=== PATIENT | male | born 1960 | race Caucasian/White ===

== ENCOUNTER 2020-02-27 12:22 | Emergency (ER) | payer OTHER, SELFPAY ==
--- NOTE | 2020-02-27 12:26 | ED.GENADULT ---
HPI - General Adult General Chief complaint: Eye Problems Stated complaint: eye irritation Time Seen by Provider: 02/27/20 12:26 Source: patient Mode of arrival: ambulatory Limitations: no limitations History of Present Illness HPI narrative: 59-year-old male patient presents to the [facility] with complaints of right eye irritation and pain since yesterday. Patient states that he was riding his bike yesterday and thinks something flew into his eye. Patient states he has had some irritation a little bit of pain. Patient states he has had clear watery discharge. Patient still feels like there is something in his eye. Denies taking anything for pain. Patient states he has had a little bit of slight blurry vision due to the clear watery eyes but denies any sensitivity to the light. Denies any itchiness that he is aware of. Related Data Home Medications Medication Instructions Recorded Confirmed atorvastatin 10 mg tablet 10 mg PO DAILY 11/18/19 11/18/19 Allergies Allergy/AdvReac Type Severity Reaction Status Date / Time No Known Allergies Allergy Unverified 11/18/19 14:07 Review of Systems Review of Systems: Narrative: CONSTITUTIONAL: Denies fever, chills, or sweats. EYES: Denies visual changes, positive right eye redness and clear discharge. ENT: Denies rhinorrhea, congestion, sore throat, or otalgia. CARDIOVASCULAR: Denies chest pain, palpitations, or edema. RESPIRATORY: Denies cough or dyspnea. GASTROINTESTINAL: Denies abdominal pain, nausea, vomiting, or diarrhea. GENITOURINARY: Denies dysuria or hematuria. SKIN: Denies rash or itching. MUSCULOSKELETAL: Denies back pain, joint pain, or myalgia. NEUROLOGIC: Denies headache, numbness, or weakness. PSYCHIATRIC: Denies anxiety or depression. [facility] Past Medical History Medical History Chronic low back pain Essential (primary) hypertension Mixed hyperlipidemia Family History Family History Mother COPD (chronic obstructive pulmonary disease) Father Cancer of neck Social History Social History Smoking status: Never smoker Alcohol intake: current Substance use: never Gender identity (if verbalized by the patient): Male Comments At the time of my signature I agree with nursing past medical history, surgical, social, and family history. There is no relevant family history pertinent to the presenting complaint. Exam Narrative: Exam Narrative: GENERAL: Well-appearing, well-nourished, and in no acute distress. HEAD: Normocephalic, atraumatic. EYES: PERRLA and EOM intact without limitation or complaint of pain, no periorbital soft tissue swelling ,no erythema, warmth or tenderness noted, no obvious deformity. No crusting or swelling.clear tearing and draining.No photophobia. No nystagmus No FB or lesion on lid eversion. Corneas grossly clear, no obvious FB or hyphens/hypopyon. injection to sclera. Lids and lashes clear. ENT: Nares clear, no rhinorrhea or epistaxis. Mucous membranes moist. NECK: Supple. No lymphadenopathy CHEST: Clear to auscultation. No respiratory distress. HEART: Regular rate and rhythm. No murmur heard. Normal peripheral pulses. ABDOMEN: Soft, nontender, nondistended, normal active bowel sounds. EXTREMITIES: Normal range of motion. No edema. SKIN: Warm, dry, no rash. NEURO: No focal deficits. Alert and oriented x3. Course Vital Signs Vital signs: Vital Signs Temperature 36.3 C L 02/27/20 12:31 Pulse Rate 60 02/27/20 12:31 Respiratory Rate 18 02/27/20 12:31 Blood Pressure 174/108 H 02/27/20 12:31 Pulse Oximetry 99 02/27/20 12:31 Temperature 36.3 C L 02/27/20 12:31 Pulse Rate 60 02/27/20 12:31 Respiratory Rate 18 02/27/20 12:31 Blood Pressure 178/110 H 02/27/20 12:46 Pulse Oximetry 99 02/27/20 12:31 Vital signs re
[2020-02-27 12:31] VITALS: BP 174/108; PULSE 60; RESP 18; TEMP 36.3; O2SAT 99
[2020-02-27 12:46] VITALS: BP 178/110
== END 2020-02-27 13:10 | disposition home or self-care (01) ==
PROVIDERS: Emergency Provider Nurse Practitioner Family
DX: S05.01XA Injury of conjunctiva and corneal abrasion without foreign body, right eye, initial encounter (principal); X58.XXXA Exposure to other specified factors, initial encounter; I10 Essential (primary) hypertension; E78.2 Mixed hyperlipidemia
CPT/HCPCS: 99213; A9270; G0463

== ENCOUNTER 2021-01-22 09:18 | Outpatient (CLI) | payer OTHER, SELFPAY ==
--- NOTE | 2021-02-11 17:01 | WPDHOMESLEEP ---
Sleep Study - Home Unattended Date of Study: 01/22/21 Ordering Provider: Jacob Javier MD Interpreting Provider: Gris Miller MD Home Sleep Study Type: Watch PAT Height: 1.83 m Weight: 108.862 kg Body Mass Index: 32.5 Neck Circumference (inches): 19 [place]: 6 Reason for Sleep Study Loud snoring per his Sleep History Ternt Strickland is a 69 year old man with loud snoring reported to him by his , and this is upsetting to her. He does not have trouble sleeping with a cold and does not wake up gasping for breath at night. He does not have breathing problems at night according to himself but apparently his notices abnormal breathing. He rarely sweats excessively at night. He does not notice his heart pounding or beating irregularly night. He does not fall asleep during the day, does not fall asleep involuntarily or while driving. He does not have loss of muscle tone was strong emotion, does not have daytime difficulties due to excessive sleepiness. He works in sales. He does not feel paralyzed on waking or falling asleep and does not have vivid dreamlike scenes upon awakening or falling asleep. He does not feel afraid to go to sleep. he does not have nightmares. He occasionally remembers his dreams, occasionally has racing thoughts. He does not feel sad, depressed or anxious. He does not have muscular tension. He rarely notices parts of his body jerking. He does not kick at night. He does not have crawling or aching feelings in his legs and does not have any kind of leg pain at night. He does not have morning jaw pain. Normal bedtime is 11:00 p.m. falling asleep within a few seconds, waking up a couple of times at night to urinate. He drinks a significant amount of water during the day, and he attributes his nocturia to this habit. He wakes around 7:00 a.m.. His weekend schedule shows that he stays awake until midnight and also wakes around 7:00 a.m. he frequently awakens feeling refreshed. He rarely has excessive daytime sleepiness. He rarely has heartburn at night. He does not have morning headaches. He denies problems with memory or concentration. [facility] Past Medical History Medical History Abnormal fasting glucose BMI 33.0-33.9,adult Chronic low back pain Colon cancer screening Encounter for prostate cancer screening Essential (primary) hypertension Hypersomnia Mixed hyperlipidemia Family History Family History Mother COPD (chronic obstructive pulmonary disease) Father Cancer of neck Social History Social History Smoking status: Never smoker Alcohol intake: never Substance use: never Substance use type: does not use Gender identity (if verbalized by the patient): Male Spiritual care concerns: No Medications Home Medications Medication Instructions Recorded Confirmed Type atorvastatin 10 mg tablet 10 mg PO DAILY #90 tablet 12/10/20 12/24/20 Rx sodium,potassium,mag sulfates See Rx Instructions .ROUTE 12/17/20 Rx [Suprep Bowel Prep Kit] .COMPLEX #1 ml Sleep Procedure The sleep study was completed using Mommy NearestT a technically adequate device with seven channels: peripheral arterial tone, actigraphy, body position, snore, respiratory movement, pulse oximetry, sleep staging, and heart rate. Prior to using the device, the patient received verbal and written instructions for its application and was provided with the help desk phone number for additional telephonic instruction with 24-hour availability of qualified personnel to answer questions. Sleep Architecture The recording time is 8 hours 2 minutes. Sleep time is 7 hours 39 minutes. Sleep latency is 6 minutes. REM latency is prolonged at 121 minutes. Sleep efficiency is 95.3%. Sleep architecture shows 5% stage wake, 82% light sle
[2021-02-11 17:21] VITALS: BMI 32.5
== END 2021-01-22 09:19 | disposition home or self-care (01) ==
LOC: ANHCSM 09:18
PROVIDERS: PCP Family Medicine; Visit Provider Family Medicine
DX: G47.10 Hypersomnia, unspecified (principal); G47.33 Obstructive sleep apnea (adult) (pediatric); G47.34 Idiopathic sleep related nonobstructive alveolar hypoventilation
CPT/HCPCS: 95800

== ENCOUNTER 2021-10-06 08:25 | Outpatient (CLI) | payer OTHER, SELFPAY ==
--- NOTE | 2021-10-27 13:33 | WPDSLEEPSTUD ---
Sleep Study Date of Study: 10/06/21 Ordering Provider: Jacob Javier MD Interpreting Physician: Gris Miller MD Sleep Study Type: CPAP Titration Height: 1.83 m Weight: 111.13 kg Body Mass Index: 33.2 Neck Circumference (inches): 18 [place]: 4 Reason for Sleep Study * Home sleep test using WatchPat January 22, 2021 with severe obstructive sleep apnea, AHI 61.9, central AHI 27.1; patient now presents for CPAP titration. Has used an oral appliance however still has non-restorative sleep and increased daytime sleepiness. Sleep History Trent Strickland is a 60 year old man with loud snoring reported to him by his , and this is upsetting to her. He does not have trouble sleeping with a cold and does not wake up gasping for breath at night. He does not have breathing problems at night according to himself but apparently his notices abnormal breathing. He rarely sweats excessively at night. He does not notice his heart pounding or beating irregularly night. He does not fall asleep during the day, does not fall asleep involuntarily or while driving. He does not have loss of muscle tone with strong emotion, now is having more sleepiness than he was having at the time of his home sleep test in January,. He has non-restorative sleep and some daytime sleepiness. He works in sales. He does not feel paralyzed on waking or falling asleep and does not have vivid dreamlike scenes upon awakening or falling asleep. He does not feel afraid to go to sleep. He does not have nightmares. He occasionally remembers his dreams, occasionally has racing thoughts. He does not feel sad, depressed or anxious. He does not have muscular tension. He rarely notices parts of his body jerking. He does not kick at night. He does not have crawling or aching feelings in his legs and does not have any kind of leg pain at night. He does not have morning jaw pain. Normal bedtime is 11:00 p.m. falling asleep within a few seconds, waking up a couple of times at night to urinate. He drinks a significant amount of water during the day, and he attributes his nocturia to this habit. He wakes around 7:00 a.m.. His weekend schedule shows that he stays awake until midnight and also wakes around 7:00 a.m. he frequently awakens feeling refreshed. He has had increased excessive daytime sleepiness lately. He rarely has heartburn at night. He does not have morning headaches. He denies problems with memory or concentration. [facility] Past Medical History Medical History Abnormal fasting glucose BMI 33.0-33.9,adult BMI 34.0-34.9,adult Chronic low back pain Chronic right shoulder pain Colon cancer screening Encounter for prostate cancer screening Essential (primary) hypertension Hypersomnia Left hand paresthesia Mixed hyperlipidemia Right hand pain Right rotator cuff tendinitis Family History Family History Mother COPD (chronic obstructive pulmonary disease) Father Cancer of neck Social History Social History Smoking status: Never smoker Alcohol intake: current Drinks per week: 7 Alcohol use details: twice a week Substance use: never Substance use type: does not use Gender identity (if verbalized by the patient): Male Spiritual care concerns: No Medications Home Medications Medication Instructions Recorded Confirmed Type sodium,potassium,mag sulfates See Rx Instructions .ROUTE 12/17/20 09/20/21 Rx [Suprep Bowel Prep Kit] .COMPLEX #1 ml amlodipine 5 mg tablet 5 mg PO . q.a.m. #90 tablet 04/13/21 10/20/21 Rx atorvastatin 10 mg tablet 10 mg PO . q.h.s. #90 tablet 04/13/21 10/20/21 Rx lisinopril 30 mg tablet 30 mg PO QHS #90 tablet 09/20/21 10/20/21 Rx meloxicam 15 mg tablet 15 mg PO DAILY PRN #30 tablet 09/20/21 10/20/21 Rx Sleep Procedure
[2021-10-27 13:42] VITALS: BMI 33.2
== END 2021-10-07 06:55 | disposition home or self-care (01) ==
LOC: ANHCSM 08:26
PROVIDERS: PCP Family Medicine; Visit Provider Family Medicine
DX: G47.33 Obstructive sleep apnea (adult) (pediatric) (principal)
CPT/HCPCS: 95811

== ENCOUNTER 2021-12-15 01:13 | Day surgery (SDC) | payer OTHER, SELFPAY ==
[2021-12-07 13:19] VITALS: BMI 33.3
[2021-12-15 06:27] VITALS: BP 151/97; PULSE 64; RESP 17; TEMP 36.4; O2SAT 97
[2021-12-15] MEDS: LACTATED RINGERS 1,000 ML 150 ML IV CONT (06:36)
--- NOTE | 2021-12-15 07:16 | WPDANESEPPF ---
Anes - Initial Pre Proc Eval Procedure: Operation Date: 12/15/21 07:30 Proposed Procedures p Screening Colonoscopy - Sonny Ludwig MD Date/Time: 12/15/21 07:16 Surgeon: Sonny Ludwig MD Pre Op Diagnosis: neoplasm screening Patient Data Age: 60 Gender: M Height: 1.83 m Weight: 111.3 kg Last Vital Signs Temp 36.4 C L 12/15/21 06:27 Pulse 64 12/15/21 06:27 Resp 17 12/15/21 06:27 BP 151/97 H 12/15/21 06:27 Pulse Ox 97 12/15/21 06:27 Allergies Allergy/AdvReac Type Severity Reaction Status Date / Time No Known Allergies Allergy Verified 12/15/21 06:26 Home Medications Medication Instructions Recorded Confirmed Type sodium,potassium,mag sulfates See Rx Instructions .ROUTE 12/17/20 12/15/21 Rx [Suprep Bowel Prep Kit] .COMPLEX #1 ml amlodipine 5 mg tablet 5 mg PO . q.a.m. #90 tablet 04/13/21 12/15/21 Rx atorvastatin 10 mg tablet 10 mg PO . q.h.s. #90 tablet 04/13/21 12/15/21 Rx lisinopril 30 mg tablet 30 mg PO QHS #90 tablet 09/20/21 12/15/21 Rx Patient hx anesthesia problems: none Family hx anesthesia problems: none Results Review: All pre-operative results and documents have been reviewed as part of the pre-operative evaluation. [facility] Past Medical History Medical History Abnormal fasting glucose BMI 33.0-33.9,adult BMI 34.0-34.9,adult Chronic low back pain Chronic right shoulder pain Colon cancer screening Encounter for prostate cancer screening Essential (primary) hypertension Hypersomnia Left hand paresthesia Mixed hyperlipidemia Right hand pain Right rotator cuff tendinitis Family History Family History Mother COPD (chronic obstructive pulmonary disease) Father Cancer of neck Social History Social History Smoking status: Never smoker Alcohol intake: current Drinks per week: 7 Alcohol use details: twice a week Substance use: never Substance use type: does not use Living arrangements: with family Gender identity (if verbalized by the patient): Male Spiritual care concerns: No Anes - Eval Final PreProcedure Day of Procedure 12/15/21 07:16 Patient weight: obese Heart: regular rate and rhythm Lungs: clear to auscultation and normal air movement Airway: Mallampati scale class II Neurological: alert and oriented Last oral intake: >/= 8 hours ASA classification: III Emergent: no Anesthetic plan: proceed Anesthesia type and monitoring: general GIVS Results Review: All pre-operative results and documents have been reviewed as part of the pre-operative evaluation. Informed Consent: The patient's anesthetic plan and its attendant risks and benefits were discussed with the patient/family/POA. Questions were solicited and answers provided to the satisfaction of the patient/family/POA.
--- NOTE | 2021-12-15 07:22 | PM.HPGS ---
History of Present Illness History of Present Illness Consent: Risks, benefits, and alternatives have been discussed and questions answered. Patient agrees to proceed with procedure. Chief complaint: neoplasm screening Narrative: Trent Strickland is a 60 year old male here for screening colonoscopy, last one ~ 10 years ago. Review of Systems Constitutional: Constitutional: Denies headache(s) and Denies weakness Eyes: Eyes: Denies blurry vision ENT: Reports Normal hearing present, Denies headache(s) and Denies neck pain Cardiovascular: Cardiovascular: Denies chest pain and Denies dyspnea Respiratory: Respiratory: Denies dyspnea Gastrointestinal: Gastrointestinal: Reports no additional gastrointestinal complaints Genitourinary: Genitourinary: Denies dysuria Musculoskeletal: Musculoskeletal: Denies neck pain Integumentary/Breasts: Skin/Breast: Denies dry skin Neurologic: Reports Normal hearing present, Denies headache(s) and Denies weakness Psychiatric: Psychiatric: Denies anxiety Endocrine: Endocrine: Denies change in body appearance Hematologic/Lymphatic: Hematologic/Lymphatic: Denies easy bleeding Allergic/Immunologic: Allergic/Immunologic: Denies urticaria PMFSH Past Medical History Medical History Abnormal fasting glucose BMI 33.0-33.9,adult BMI 34.0-34.9,adult Chronic low back pain Chronic right shoulder pain Colon cancer screening Encounter for prostate cancer screening Essential (primary) hypertension Hypersomnia Left hand paresthesia Mixed hyperlipidemia Right hand pain Right rotator cuff tendinitis Family History Family History Mother COPD (chronic obstructive pulmonary disease) Father Cancer of neck Social History Social History Smoking status: Never smoker Alcohol intake: current Drinks per week: 7 Alcohol use details: twice a week Substance use: never Substance use type: does not use Living arrangements: with family Gender identity (if verbalized by the patient): Male Spiritual care concerns: No Meds Home Medications and Allergies Home Medications Medication Instructions Recorded Confirmed Type sodium,potassium,mag sulfates See Rx Instructions .ROUTE 12/17/20 12/15/21 Rx [Suprep Bowel Prep Kit] .COMPLEX #1 ml amlodipine 5 mg tablet 5 mg PO . q.a.m. #90 tablet 04/13/21 12/15/21 Rx atorvastatin 10 mg tablet 10 mg PO . q.h.s. #90 tablet 04/13/21 12/15/21 Rx lisinopril 30 mg tablet 30 mg PO QHS #90 tablet 09/20/21 12/15/21 Rx Allergies Allergy/AdvReac Type Severity Reaction Status Date / Time No Known Allergies Allergy Verified 12/15/21 06:26 Vital Signs Vital Signs - 24 hr 12/15/21 06:27 Temperature 97.5 F L Pulse Rate 64 Respiratory Rate 17 Blood Pressure 151/97 H Pulse Oximetry 97 Exam Const: General: comfortable and no acute distress HENMT: General nose exam: Normal nares present Eyes: General: appearance normal, both eyes and all related structures Neck: Neck: no JVD Resp: Auscultation: clear to auscultation bilaterally Cardio: Rate: regular rate Rhythm: regular rhythm GI: Inspection: non-distended GI Palp: Yes Soft to palpation Skin: General skin exam: normal color Neuro: General: gait normal Speech: normal speech Extrem: General: normal to inspection Psych: Mental Status: mental status grossly normal Assessment and Plan Assessment and plan (1) Colon cancer screening: Code(s): Z12.11 - Encounter for screening for malignant neoplasm of colon Status: Acute Assessment and Plan: colonoscopy
[2021-12-15 07:47] VITALS: BP 112/68; PULSE 69; RESP 17; O2SAT 91
[2021-12-15 07:57] VITALS: BP 118/76; PULSE 69; RESP 17; O2SAT 91
[2021-12-15 08:05] VITALS: BP 130/86; PULSE 67; RESP 17; O2SAT 95
== END 2021-12-15 08:18 | disposition home or self-care (01) ==
PROVIDERS: PCP Family Medicine; Visit Provider Internal Medicine Gastroenterology
PROC: 0DJD8ZZ Inspection of Lower Intestinal Tract, Via Natural or Artificial Opening Endoscopic (ICD-10-PCS; CPT 45378; principal; 2021-12-15 07:30)
DX: Z12.11 Encounter for screening for malignant neoplasm of colon (principal); K57.30 Diverticulosis of large intestine without perforation or abscess without bleeding; D12.2 Benign neoplasm of ascending colon; K63.5 Polyp of colon; K64.8 Other hemorrhoids; I10 Essential (primary) hypertension; E78.2 Mixed hyperlipidemia; E66.9 Obesity, unspecified; Z68.33 Body mass index [BMI] 33.0-33.9, adult
CPT/HCPCS: 45385; 88305; J2704; J7120

== ENCOUNTER 2022-02-14 07:30 | Outpatient (RCR) | payer OTHER, SELFPAY ==
--- NOTE | 2021-12-09 08:15 | PTOPEVAL ---
Thank you for referring Trent Strickland to [facility].? The patient is scheduled to be seen for therapy? 1x/week for 4 weeks. Please review, sign, date and return this plan of care CARLIE. I agree with and certify that the following plan of care is medically necessary. Referring Physician Date Attending Provider: Nitesh Wade MD Significant History Evaluation Information Problem Diagnosis right shoulder pain Onset 3-4 months Additional Evaluation Detail X-ray: Moderate anterior spurring at the anterior portion of a type 2 acromion. Moderate AC joint degenerative changes appreciated. Subjective Information He was seen by the MD 10/20/21 Query Text:As Reported By Patient/ due to shoulder pain. Denies Family injury to his shoulder. He reports increased pain with reaching behind back and reaching overhead. He started performing UE stretrching with his workout. He lifts weights, eliptical and TM for his regular workouts. Denies pain with overhead press, lat pull-down. He works in sales. Denies problems with prolonged sitting. Pain Assessment Self Report Pain Assessment Right Shoulder(s) Reported Pain Level 0 Pain Frequency Intermittent Lowest Pain Intensity 0 Greatest Pain Intensity 3 Pain Aggravating Factors Lifting,Other Pain Aggravating Factors Other Pain Aggravating Factors reaching Upper Extremity Range of Motion Scapular/ Shoulder Range of Motion Left Shoulder Flexion - Active 142 Shoulder Extension - Active 45 Shoulder Abduction - Active 150 Shoulder Medial Rotation - Active 75 Shoulder Medial Rotation - Active T11:Reach Behind the Back Shoulder Lateral Rotation - Active 75 Shoulder Lateral Rotation - Active C6:Reach Behind the Head Scapular/Shoulder Range of Motion Soft Tissue Restriction Limitations Right Shoulder Flexion - Active 150 Shoulder Extension - Active 40 Shoulder Abduction - Active 153 Shoulder Medial Rotation - Active 52 Shoulder Medial Rotation - Active L2:Reach Behind the Back Shoulder Lateral Rotation - Active 68 Shoulder Lateral Rotation - Active C4:Reach Behind the Head Scapular/Shoulder Range of Motion Pain,Soft Tissue Restriction Limitatio
--- NOTE | 2022-01-03 07:52 | PTOPEVAL ---
Physical Therapy Progress Note Thank you for referring Trent Strickland to [facility].? He has been seen for 4 therapy visits to address his shoulder impairment due to his high copay and work schedule. He has been provided a HEP, but demonstrates limited progress with shoulder motion, pain and UE function. Limited progress noted towards goals. The patient is scheduled to be seen for therapy 1 visit every other week due to work schedule. Please review, sign, date and return this plan of care CARLIE. I agree with and certify that the following plan of care is medically necessary. Referring Physician Date Attending Provider: Nitesh Wade MD Diagnosis right shoulder pain Onset 3-4 months Additional Evaluation Detail X-ray: Moderate anterior spurring at the anterior portion of a type 2 acromion. Moderate AC joint degenerative changes appreciated. Subjective Information Reports he will cont to have Query Text:As Reported By Patient/ increased pain with various Family reaching motion to activities at the gym. He reports cont increased pain with reaching behind back and reaching overhead. He does not feel the exercises or therapy have helped. increased pain with right shoulder with sharp pain with abd motion Pain Assessment Self Report Pain Assessment Right Shoulder(s) Reported Pain Level 0 Pain Description With Movement Greatest Pain Intensity 6 Upper Extremity Range of Motion Scapular/ Shoulder Range of Motion Left Shoulder Flexion - Active 155 Shoulder Extension - Active 45 Shoulder Abduction - Active 145 Shoulder Medial Rotation - Active 75 Shoulder Medial Rotation - Active L1:Reach Behind the Back Shoulder Lateral Rotation - Active 75 Shoulder Lateral Rotation - Active C6:Reach Behind the Head Scapular/Shoulder Range of Motion Soft Tissue Restriction Limitations Right Shoulder Flexion - Active 145 Shoulder Extension - Active 40 Shoulder Abduction - Active 160 Shoulder Medial Rotation - Active 52 Shoulder Medial Rotation - Active L2:Reach Behind the Back Shoulder Lateral Rotation - Active 68 Shoulder Lateral Rotation - Active C5:Reach Behind the Head Scapular/Shoulder Range of Motion Pain,Soft Tissue Restriction Limitations upper Extremity Muscle Strength Testing General Upper Extremity Strength Reason Not Measured WNL/Left,WNL/Right Gross Upper Extremity Strength Comment
--- NOTE | 2022-01-17 07:39 | PCPTNOTE ---
Patient called & cancelled scheduled appointment this date due to being sick.
--- NOTE | 2022-02-14 08:23 | PTOPEVAL ---
Physical Therapy Discharge Summary Thank you for referring Trent Strickland to [facility].? Trent has been seen for 6 therapy visits to address his shoulder. He demonstrates improved shoulder motion and improved symptoms. He has been instructed in a HEP and verbalizes understanding. He has reached maximal potential with skilled therapy services. Please review, sign, date and return this discharge summary CARLIE. I agree with and certify that the following plan of care is medically necessary. Referring Physician Date Admitting Provider: Attending Provider: Nitesh Wade MD Diagnosis right shoulder pain Onset 3-4 months Additional Evaluation Detail X-ray: Moderate anterior spurring at the anterior portion of a type 2 acromion. Moderate AC joint degenerative changes appreciated. Subjective Information He does not feel therapy has Query Text:As Reported By Patient/ helped. Reports some of the Family exercises have helped, but not all of them. Reports he in consistent pain and symptoms with reaching motions. Unable to note any movement or activity which sets off the pain. increased pain with right shoulder with sharp pain with abd motion. Increased discussed with bench press with weight over 200#, incline press >150#. Pain Assessment Right Shoulder(s) Reported Pain Level 0 Pain Description Soreness Lowest Pain Intensity 0 Greatest Pain Intensity 3 Upper Extremity Range of Motion Scapular/ Shoulder Range of Motion Left Shoulder Flexion - Active 160 Shoulder Extension - Active 48 Shoulder Abduction - Active 158 Shoulder Medial Rotation - Active 80 Shoulder Medial Rotation - Active T12:Reach Behind the Back Shoulder Lateral Rotation - Active 80 Shoulder Lateral Rotation - Active C6:Reach Behind the Head Scapular/Shoulder Range of Motion Soft Tissue Restriction Limitations Right Shoulder Flexion - Active 155 Shoulder Extension - Active 45 Shoulder Abduction - Active 160 Shoulder Medial Rotation - Active 75 Shoulder Medial Rotation - Active L1:Reach Behind the Back Shoulder Lateral Rotation - Active 78 Shoulder Lateral Rotation - Active C7:Reach Behind the Head Scapular/Shoulder Range of Motion Pain,Soft Tissue Restriction Limitations Upper Extremity Muscle Strength Testing General Upper Ext
== END 2022-02-14 15:36 | disposition home or self-care (01) ==
LOC: ANHPT 07:30
PROVIDERS: PCP Family Medicine; Visit Provider Orthopaedic Surgery
DX: M75.81 Other shoulder lesions, right shoulder (principal)
CPT/HCPCS: 97110; 97112; 97140; 97161

== ENCOUNTER 2024-04-17 09:23 | Outpatient (CLI) | payer BC, SELFPAY ==
--- NOTE | 2024-04-17 11:15 | NEURO_ITS ---
Impression: # Complains of numbness of hands. Not diabetic. # Bilateral Carpal Tunnel Syndrome of moderate degree. 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 # Ulnar to median cross innervation noted. # Noted proximal right median nerve slowing as well but needle exam of pronator teres is normal. Nerve Conduction Studies Anti Sensory Summary Table Stim Site NR Peak (ms) P-T Amp (?V) Site1 Site2 Delta-P (ms) Dist (cm) Juanpablo (m/s) Left Median Anti Sensory (2-3nd Digit) Wrist 5.5 15.9 Wrist 2-3nd Digit 5.5 14.0 25 Wrist 5.3 17.8 Wrist 2-3nd Digit 5.5 14.0 25 Right Median Anti Sensory (2-3nd Digit) Wrist 4.9 96.8 Wrist 2-3nd Digit 4.9 14.0 29 Wrist 4.8 42.6 Wrist 2-3nd Digit 4.9 14.0 29 Left Radial Anti Sensory (Base 1st Digit) Wrist 2.3 21.8 Wrist Base 1st Digit 2.3 0.0 Right Radial Anti Sensory (Base 1st Digit) Wrist 3.0 12.5 Wrist Base 1st Digit 3.0 0.0 Left Ulnar Anti Sensory (5th Digit) Wrist 3.5 72.6 Wrist 5th Digit 3.5 14.0 40 Right Ulnar Anti Sensory (5th Digit) Wrist 2.6 44.7 Wrist 5th Digit 2.6 14.0 54 Motor Summary Table Stim Site NR Onset (ms) O-P Amp (mV) Site1 Site2 Delta-0 (ms) Dist (cm) Juanpablo (m/s) Left Median Motor (Abd Poll Brev) Wrist 4.9 1.1 Elbow Wrist 6.7 31.0 46 Elbow 11.6 1.0 Right Median Motor (Abd Poll Brev) Wrist 4.7 4.0 Elbow Wrist 8.1 31.0 38 Elbow 12.8 2.3 Left Ulnar Motor (Abd Dig Minimi) Wrist 2.8 6.3 A Elbow Wrist 6.3 32.0 51 A Elbow 9.1 4.7 Right Ulnar Motor (Abd Dig Minimi) Wrist 3.0 7.2 A Elbow Wrist 6.4 31.0 48 A Elbow 9.4 5.8 F Wave Studies NR F-Lat (ms) L-R F-Lat (ms) Left Median (Mrkrs) (Abd Poll Brev) 37.60 0.00 Right Median (Mrkrs) (Abd Poll Brev) 37.60 0.00 Left Ulnar (Mrkrs) (Abd Dig Min) 35.61 0.41 Right Ulnar (Mrkrs) (Abd Dig Min) 36.02 0.41 EMG Side Muscle Nerve Root Ins Act Fibs Amp Dur Recrt Comment Right 1stDorInt Ulnar C8-T1 Nml Nml Nml Nml Nml Right Ext Indicis Radial (Post Int) C7-8 Nml Nml Nml Nml Nml Right Ext Digitorum Radial (Post Int) C7-8 Nml Nml Nml Nml Nml Right BrachioRad Radial C5-6 Nml Nml Nml Nml Nml Right PronatorTeres Median C6-7 Nml Nml Nml Nml Nml Right Abd Poll Brev Median C8-T1 Nml Nml Nml Nml Nml Right ABD Dig Min Ulnar C8-T1 Nml Nml Nml Nml Nml Left 1stDorInt Ulnar C8-T1 Nml Nml Nml Nml Nml Left Ext Indicis Radial (Post Int) C7-8 Nml Nml Nml Nml Nml Left Ext Digitorum Radial (Post Int) C7-8 Nml Nml Nml Nml Nml Left BrachioRad Radial C5-6 Nml Nml Nml Nml Nml Left PronatorTeres Median C6-7 Nml Nml Nml Nml Nml Left Abd Poll Brev Median C8-T1 Nml Nml Nml Nml Nml Left ABD Dig Min Ulnar C8-T1 Nml Nml Nml Nml Nml MTDD
== END 2024-04-17 09:24 | disposition home or self-care (01) ==
LOC: ANHNEURO 09:24
PROVIDERS: PCP Family Medicine; Visit Provider Family Medicine
DX: G56.03 Carpal tunnel syndrome, bilateral upper limbs (principal); G56.21 Lesion of ulnar nerve, right upper limb
CPT/HCPCS: 95886; 95911

== ENCOUNTER 2024-09-30 14:48 | Outpatient (CLI) | payer BC, SELFPAY ==
--- NOTE | ~2024-09-30 | US_ITS ---
EXAMINATION: US thyroid DATE: 09/30/2024 15:00 INDICATION: Left thyroid nodule. TECHNIQUE: Multiple ultrasound images of the thyroid were obtained. COMPARISON: None. FINDINGS: The right thyroid lobe measures 4.6 x 2.0 x 1.6 cm. The left thyroid lobe measures 4.7 x 2.2 x 2.7 c m. In the left thyroid lobe, there is a 9 mm, solid, hypoechoic, wider than tall nodule with smooth margin without echogenic foci (TI-RADS TR4). In the left thyroid lobe, there is a 2.2 cm solid, hypoe choic, taller than wide nodule with smooth margin without echogenic foci (TR5). IMPRESSION: 1. Thyroid nodules. Ultrasound-guided fine needle aspiration of the 2.2 cm left thyroid nodule is rec ommended. Reviewed, dictated and finalized at location A. LE OFFICER IMPRESSION: 1. Thyroid nodules. Ultrasound-guided fine needle aspiration of the 2.2 cm left thyroid nodule is recommended.
== END 2024-09-30 14:49 | disposition home or self-care (01) ==
LOC: GOSHIMG 14:48
PROVIDERS: PCP Family Medicine; Visit Provider Family Medicine
DX: E04.2 Nontoxic multinodular goiter (principal)
CPT/HCPCS: 76536

== ENCOUNTER 2024-11-04 10:39 | Outpatient (CLI) | payer BC, SELFPAY ==
--- NOTE | ~2024-11-04 | US_ITS ---
EXAMINATION: US FNA w image guidance DATE: 11/04/2024 11:58 INDICATION: Nontoxic single left thyroid nodule TECHNIQUE: A time-out was performed to verify the patient's name, date of , and procedure to be performed . The procedure and its benefits and risks were discussed with the patient. Risks specifically discus sed included bleeding and infection. The patient understood the risks and agreed to proceed. The neck was prepped and draped in the usual sterile manner. 3 mL 1% lidocaine was used for local anesthesia . 8 passes were made with a 25G needle into the lesion. Appropriate needle location was documented with continuous sonographic guidance. A sterile bandage was applied. There were no immediate compli cations. FINDINGS: Grayscale ultrasound images demonstrate biopsy needles advanced into the 2.2 cm left thyroid nodule o f concern. IMPRESSION: 1. Successful ultrasound-guided fine needle aspiration of the 2.2 cm left thyroid nodule of concern. Reviewed, dictated and finalized at location A. ACE SHIP USW SUPERVISOR IMPRESSION: 1. Successful ultrasound-guided fine needle aspiration of the 2.2 cm left thyr oid nodule of concern.
== END 2024-11-04 10:40 | disposition home or self-care (01) ==
PROVIDERS: PCP Family Medicine; Visit Provider Family Medicine
DX: E04.1 Nontoxic single thyroid nodule (principal)
CPT/HCPCS: 10005; 88172; 88173; 88177; 88305

== ENCOUNTER 2025-07-07 08:48 | Outpatient (CLI) | payer BC, SELFPAY ==
--- OUTSIDE RECORDS SUMMARY | 2025-07-07 09:06 | XMS_ITS | Encounter Summary ---
Author Organization [facility] Address [address] [place], [place] [address] [address] Care Team Providers Care Ore Washer Name Role Phone Jacob Javier MD Primary Care Provider [phone] Encounter Details Date Type Department Care Team (Late st Contact Info) Description 05/06/2024 Lab Requisition [facility] - DermPath Lab [address] [facility], [place] [address] Micah Azar MD [address] [place] [address] Social History Tobacco Use Types Packs/Day Years Used Date Smoking Tobacco: Never Assessed Sex and Gender Information Value Date Recorded Sex Assigned at Not on file 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 Gender Identity Not on file Sexual Orientation Not on file documented as of this encounter Plan of Treatment Not on file documented as of this encounter Procedures Procedure Name Priority Date/Time Associated Diagnosis Comments DERMATOPATHOLOGY Routine 05/06/2024 12:0 0 AM CDT documented in this encounter Results * DERMATOPATHOLOGY (05/06/2024 12:00 AM CDT) Case Report Dermatopathology Report Case: [id number] Authorizing Provider: Micah Azar MD Collected: 05/06/2024 12:00 AM Ordering Location: [facility] - Received: 05/07/2024 06:27 AM DermPath Lab Pathologist: Louisa Skinner MD Specimen: Skin, right inner thigh 4 5:45 PM CDT DERMATOPATHOLOGY LABORATORY Final Diagnosis Specimen A. SKIN, right inner thigh: 'BARBOZA' ANGIOMA (D18.01) 4 5:45 PM CDT DERMATOPATHOLOGY LABORATORY at 1745 CDT Clinical History Irr hemangioma 4 5:45 PM CDT DERMATOPATHOLOGY LABORATORY Gross Description Specimen A: Received is one formalin filled container labeled with the patients name and designated right inner thigh. The specimen consists of a shave removal measuring 5x4x2 mm. Jar 0. 4 5:45 PM CDT DERMATOPATHOLOGY LABORATORY Microscopic Description Specimen A. SKIN, right inner thigh: In the dermis, there are dilated vascular spaces surrounded by thin, widely spaced endothelial cells. 4 5:45 PM CDT DERMATOPATHOLOGY LABORATORY Disclaimer An external and internal positive and negative controls are appropriate for the histochemical, immunohistochemical and immunofluorescence stain(s) in this case (if any), except where stated explicitly. The performance characteristics of the stain(s) cited in this report were developed and its performance characteristic determined by the Dermatopathology Laboratory at [facility], directed by Dr. Gloria Mejia. These tests need not be, and therefore are not, approved by the [place] Food and Drug Administration. The tests are used for clinical purposes. Billing Codes Specimen Charges Stain Charges 12194 1 4 5:45 PM CDT DERMATOPATHOLOGY LABORATORY Embedded Images 4 5:45 PM CDT DERMATOPATHOLOGY LABORATORY Pathology/Cytolog y TISSUE SPECIMEN FROM SKIN / Unknown 05/06/2024 05/07/2024 6:27 AM CDT Micah Azar MD LAB - PATHOLOGY/CYTOLOGY ORDERAB LES Final Result DERMATOPATHOLOGY LABORATORY [facility] - Department of Dermatology [facility] Medicine [address] [place] [address], [address] [place] [address], [facility] [phone] documented in this encounter Visit Diagnoses Not on filedocumented in this encounter Care Teams Ore Washer Relationship Specialty Start Date End Date Jacob Javier MD [address] [place] [address] PCP - General 12/17/21 documented as of this encounter
--- OUTSIDE RECORDS SUMMARY | 2025-07-07 09:06 | XMS_ITS | Encounter Summary ---
Author Organization [facility] Address [address] [place], [place] [address] [address] Care Team Providers Care Dental Director Name Role Phone Jacob Javier MD Primary Care Provider [phone] Encounter Details Date Type Department Care Team (Late st Contact Info) Description 12/02/2020 Lab Requisition [facility] DermPath Lab [address] [facility] [place] [address] Micah Azar MD [address] [place] [address] Social History Tobacco Use Types Packs/Day Years Used Date Smoking Tobacco: Never Assessed Sex and Gender Information Value Date Recorded Sex Assigned at Not on file 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 Gender Identity Not on file Sexual Orientation Not on file documented as of this encounter Plan of Treatment Not on file documented as of this encounter Procedures Procedure Name Priority Date/Time Associated Diagnosis Comments DERMATOPATHOLOGY Routine 12/01/2020 3:27 AM CARPENTERS SUPERVISOR documented in this encounter Results * DERMATOPATHOLOGY (12/01/2020 3:27 AM CARPENTERS SUPERVISOR) Case Report Dermatopathology Report Case: [id number] Authorizing Provider: Micah Azar MD Collected: 12/01/2020 03:27 AM Ordering Location: [facility] DermPath Lab Received: 12/02/2020 06:19 AM Pathologist: Frederick Mejia MD Specimen: Skin, right flank 1:40 PM CARPENTERS SUPERVISOR DERMATOPATHOLOGY LABORATORY Final Diagnosis Specimen A. 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 1 1:40 PM [facility] DERMATOPATHOLOGY LABORATORY Gross Description Specimen A: Received is one formalin filled container labeled with the patient's name and designated right flank. The specimen consists of a shave biopsy (2 pieces) measuring [id number], bisected, & [id number]. Jar 0. 1 1:40 PM [facility] DERMATOPATHOLOGY LABORATORY Microscopic Description Specimen A. SKIN, right flank: There are very thick, brightly eosinophilic, haphazardly arranged collagen bundles associated with an increased number of fibroblasts. There are fibroblasts and collagen bundles oriented parallel to the skin surface with elongated blood vessels, some of which are oriented perpendicular to the skin surface. 1 1:40 PM [facility] DERMATOPATHOLOGY LABORATORY Disclaimer An external and internal positive and negative controls are appropriate for the histochemical, immunohistochemical and immunofluorescence stain(s) in this case (if any), except where stated explicitly. The performance characteristics of the stain(s) cited in this report were developed and its performance characteristic determined by the Dermatopathology Laboratory at [facility], directed by Dr. Gloria Mejia. These tests need not be, and therefore are not, approved by the [place] Food and Drug Administration. The tests are used for clinical purposes. Billing Codes Specimen Charges Stain Charges 19214 1 1 1:40 PM [facility] DERMATOPATHOLOGY LABORATORY Embedded Images 1 1:40 PM [facility] DERMATOPATHOLOGY LABORATORY Pathology/Cytolo gy TISSUE SPECIMEN FROM SKIN / Unknown 12/01/2020 3:27 AM CARPENTERS SUPERVISOR 12/02/2020 6:19 AM CARPENTERS SUPERVISOR Micah Azar MD LAB - PATHOLOGY/CYTOLOGY ORDERAB LES Final Result DERMATOPATHOLOGY LABORATORY [facility] - Department of Dermatology [address], [address] [phone] documented in this encounter Visit Diagnoses Not on filedocumented in this encounter Care Teams Dental Director Relationship Specialty Start Date End Date Jacob Javier MD [address] [place] [address] PCP - General 12/17/21 documented as of this encounter
--- OUTSIDE RECORDS SUMMARY | 2025-07-07 09:06 | XMS_ITS | Clinical Summary ---
Author Organization [facility] Address [address] [place] [address] [place] [address] Care Team Providers Care Supervisor Detasseling Crew Name Role Phone Jacob Javier MD Primary Care Provider [phone] Source Comments [facility],non-owned Affiliates and Associated Physician Practices is amultiple site organization consisting of ambulatory clinics and hospital sitesin [place], [place], [place] and [place]. This disclosure is being madepursuant to the Care Everywhere program and may not contain all information available regarding this patient. Last updated 18.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 Gender Identity Not on file Sexual Orientation Not on file Plan of Treatment Health Maintenance Due Date Last Done Comments COLOGUARD (AGES 45-75) - COL ON CA SCREENING 1960 COLON MONITORING 1960 COLONOSCOPY - COLON CA SCREENING 1960 CT COLONOGRAPHY - COLON CA SCREENING 1960 Colorectal Cancer Screening 1960 FIT - COLON CA SCREENING 1960 FLEX SIG - COLON CA SCREENING 1960 LIPID TESTING 1960 HIV SCREENING 1975 HEPATITIS C SCREENING 12/15/1978 DTAP/TDAP/TD VACCINES (1 - Tdap) 1979 PNEUMOCOCCAL VACCINE 50+ (1 of 1 - PCV) 2010 ZOSTER VACCINE (1 of 2) 2010 COVID-19 VACCINE ( - 2023-2 5 season) 2024 DEPRESSION SCREENING 11/20/2024 INFLUENZA VACCINE (#1) 2025 Respiratory Syncytial Virus (RSV) Vaccine Pt: or over 60 yrs (1 - 1-dose 75+ series) 2035 HEPATITIS B VACCINE Aged Out No longe r eligible based on patient's age to complete this topic HIB VACCINE Aged Out No longer eligi ble based on patient's age to complete this topic HPV VACCINE Aged Out No longer eligi ble based on patient's age to complete this topic MENINGOCOCCAL (Group B) VACC INE SHARED DECISION-MAKING Aged Out No longer eligibl e based on patient's age to complete this topic MENINGOCOCCAL GROUPS A/C/Y/W VACCINE Aged Out No longer eligible b ased on patient's age to complete this topic Insurance [employer] [facility] Care Teams Supervisor Detasseling Crew Relationship Specialty Start Date End Date Jacob Javier MD [address] [place] [address] PCP - General 12/17/21
--- OUTSIDE RECORDS SUMMARY | 2025-07-07 09:06 | XMS_ITS | Encounter Summary ---
Author Organization [facility] Address [address] [place], [place] [address] [address] Care Team Providers Care Ripsaw Operator Name Role Phone Jacob Javier MD Primary Care Provider [phone] Encounter Details Date Type Department Care Team (Late st Contact Info) Description 12/01/2021 Lab Requisition [facility] DermPath Lab [address] [facility] [place] [address] Micah Azar MD [address] [place] [address] Social History Tobacco Use Types Packs/Day Years Used Date Smoking Tobacco: Never Assessed Sex and Gender Information Value Date Recorded Sex Assigned at Not on file Legal Sex Male 3:24 PM INSURANCE VERIFICATION REPRESENTATIVE Gender Identity Not on file Sexual Orientation Not on file documented as of this encounter Plan of Treatment Not on file documented as of this encounter Procedures Procedure Name Priority Date/Time Associated Diagnosis Comments DERMATOPATHOLOGY Routine 12/01/2021 12:0 0 AM INSURANCE VERIFICATION REPRESENTATIVE documented in this encounter Results * DERMATOPATHOLOGY (12/01/2021 12:00 AM INSURANCE VERIFICATION REPRESENTATIVE) Case Report Dermatopathology Report Case: [id number] Authorizing Provider: Micah Azar MD Collected: 12/01/2021 12:00 AM Ordering Location: [facility] DermPath Lab Received: 12/01/2021 03:41 PM Pathologist: Louisa Skinner MD Specimens: A) - Skin, right forehead B) - Skin, left upper arm 4:39 PM INSURANCE VERIFICATION REPRESENTATIVE DERMATOPATHOLOGY LABORATORY Final Diagnosis Specimen A. SKIN, right forehead: HEMANGIOMA (D18.01) Specimen B. SKIN, left upper arm: HEMANGIOMA (D18.01) 2 4:39 PM [facility] DERMATOPATHOLOGY LABORATORY at 1639 INSURANCE VERIFICATION REPRESENTATIVE Clinical History A-B: R/O Irrit hemangioma 2 4:39 PM [facility] DERMATOPATHOLOGY LABORATORY Gross Description Specimen A: Received is one formalin filled container labeled with the patients name and designated right forehead. The specimen consists of a shave removal measuring 5x3x1 mm. Jar 0. Specimen B: Received is one formalin filled container labeled with the patient's name and designated left upper arm. The specimen consists of a shave biopsy measuring 6x5x2 mm. Jar 0. 2 4:39 PM [facility] DERMATOPATHOLOGY LABORATORY Microscopic Description Specimen A. SKIN, right forehead: In the dermis, there are dilated vascular spaces surrounded by thin, widely spaced endothelial cells. Specimen B. SKIN, left upper arm: In the dermis, there are dilated vascular spaces surrounded by thin, widely spaced endothelial cells. 2 4:39 PM [facility] DERMATOPATHOLOGY LABORATORY Disclaimer An external and internal positive and negative controls are appropriate for the histochemical, immunohistochemical and immunofluorescence stain(s) in this case (if any), except where stated explicitly. The performance characteristics of the stain(s) cited in this report were developed and its performance characteristic determined by the Dermatopathology Laboratory at [facility], directed by Dr. Gloria Mejia. These tests need not be, and therefore are not, approved by the [place] Food and Drug Administration. The tests are used for clinical purposes. Billing Codes Specimen Charges Stain Charges 58675 46490 1 1 2 4:39 PM [facility] DERMATOPATHOLOGY LABORATORY Embedded Images 2 4:39 PM [facility] DERMATOPATHOLOGY LABORATORY Pathology/Cytology TISSUE SPECIMEN FROM SKIN / Unknown 12/01/2021 12/01/2021 3:41 PM INSURANCE VERIFICATION REPRESENTATIVE Miscellaneous samples (specimen) TISSUE SPECIMEN FROM SKIN / Unknown 12/01/2021 12/01/2021 3:41 PM INSURANCE VERIFICATION REPRESENTATIVE Micah Azar MD LAB - PATHOLOGY/CYTOLOGY ORDERAB LES Final Result DERMATOPATHOLOGY LABORATORY [facility] - Department of Dermatology [facility], 3rd Floor [address] [phone] documented in this encounter Visit Diagnoses Not on filedocumented in this encounter Care Teams Ripsaw Operator Relationship Specialty Start Date End Date Jacob Javier MD [address] [address] PCP - General 12/17/21 documented as of this encounter
== END 2025-07-07 08:49 | disposition home or self-care (01) ==
LOC: ANHAUDIO 08:50
PROVIDERS: PCP Family Medicine; Visit Provider Family Medicine
DX: H90.3 Sensorineural hearing loss, bilateral (principal)
CPT/HCPCS: 92557; 92567